=== PATIENT | male | born 1970 | race Caucasian/White ===

== ENCOUNTER → 2017-08-10 12:20 | Outpatient (CLI) | payer MEDICAID | END | disposition home or self-care (01) | LOC: D.RAD 12:20 | DX: R13.10 Dysphagia, unspecified (principal) ==

== ENCOUNTER 2018-02-07 21:51 | Emergency (ER) | payer MEDICAID ==
[~2018-02-07] VITALS: Ht 172.7 cm; Wt 68.2 kg
[2018-02-07 22:00] VITALS: Ht 172.7 cm; Wt 68.2 kg
[2018-02-07 22:45] LABS: BASOPHILS 0 % (0-2); EOSINOPHILS 0 % (0-7); HEMATOCRIT 35.5 % (42.0-54.0); HEMOGLOBIN 12.3 g/dL (13.5-17.5); IMMATURE GRANULOCYTES 0.2 % (0-5); LYMPHOCYTES 4.5 % (15-50); MCH 32.7 pg (26.0-34.0); MCHC 34.6 g/dL (31.0-37.0); MCV 94.4 fL (80.0-100.0); MEAN PLATELET VOLUME 10.8 fL (7.4-10.4); MONOCYTES 3.7 % (2-11); NEUTROPHILS 91.6 % (40-80); RBC 3.76 10x6/uL (4.20-6.10); RDW 14.8 % (11.5-14.5)
[2018-02-07 22:54] LABS: PLATELET COUNT 32 10x3/uL (130-400)
[2018-02-07 23:05] LABS: ALBUMIN 3.2 g/dL (3.4-5.0); ALKALINE PHOSPHATASE 94 U/L (46-116); ALT (SGPT) 34 U/L (10-68); BILIRUBIN - TOTAL 2.21 mg/dL (0.2-1.3); CALC OSMOLALITY 285 mosm/kg (275-300); CARBON DIOXIDE 14.3 mmol/L (21.0-32.0); CHLORIDE - SERUM 107 mmol/L (98-107); CREATININE - SERUM 1.5 mg/dL (0.6-1.3); POTASSIUM - SERUM 3.8 mmol/L (3.5-5.1); PROTEIN - SERUM 6.6 g/dL (6.4-8.2); SODIUM 141 mmol/L (136-145); UREA NITROGEN 9 mg/dL (7-18); eGFR NON AFRICAN AMERICAN 53 mL/min (90-120)
[2018-02-07 23:13] LABS: GLUCOSE 209 mg/dL (74-106)
[2018-02-07 23:15] LABS: CKMB 0.7 U/L (0.0-3.6); CREATINE KINASE 181 UL (21-232)
[2018-02-07 23:21] LABS: TROPONIN-I < 0.017 ng/mL (0.000-0.060)
[2018-02-07 23:22] LABS: UDS - AMPHET NEGATIVE QUAL (NEGATIVE); UDS - BARB NEGATIVE QUAL (NEGATIVE); UDS - BENZO POSITIVE QUAL (NEGATIVE); UDS - COCAINE NEGATIVE QUAL (NEGATIVE); UDS - OPIATE NEGATIVE QUAL (NEGATIVE); UDS - PCP NEGATIVE QUAL (NEGATIVE); UDS - THC NEGATIVE QUAL (NEGATIVE)
[2018-02-08] MEDS ORDERED: ENULOSE10 G/15 ML PO (00:43)
[2018-02-08] MEDS ORDERED: KEPPRA750 MG PO (00:43)
[2018-02-08] MEDS ORDERED: VITAMIN B-1100 M1 PO (00:43)
[2018-02-08] MEDS ORDERED: VIMPAT50 MG PO (00:44)
[2018-02-08] MEDS ORDERED: FOLATE0.4 MG PO (00:44)
[2018-02-08] MEDS ORDERED: FERROUS SULFAT325 MG PO (00:45)
[2018-02-08] MEDS ORDERED: LIPITOR40 MG PO (00:46)
[2018-02-08] MEDS ORDERED: XIFAXAN550 MG PO (00:46)
[2018-02-08 01:20] VITALS: BP 133/81
[2018-02-08 07:14] LABS: APPEARANCE CLEAR (CLEAR); BILIRUBIN NEGATIVE (NEGATIVE); COLOR YELLOW (YELLOW); GLUCOSE 50 mg/dL (NEGATIVE); KETONE SMALL mg/dL (NEGATIVE); NITRITE NEGATIVE (NEGATIVE); PROTEIN 1+ mg/dL (NEGATIVE); SPECIFIC GRAVITY 1.025 (1.005-1.020); UROBILINOGEN NORMAL (NORMAL)
[2018-02-08 07:17] LABS: BACTERIA FEW /hpf (NONE SEEN); EPITHELIAL CELLS OCC /hpf (0-5); MUCUS <1+ /lpf (NONE SEEN); RED CELLS - URINE 0-5 /hpf (0-5); WHITE CELLS - URINE RARE /hpf (0-5)
== END 2018-02-08 01:20 | disposition other institution (70) ==
LOC: D.ER 21:51
PROVIDERS: Family Medicine
DX: G40.901 Epilepsy, unspecified, not intractable, with status epilepticus (principal); R00.0 Tachycardia, unspecified